=== PATIENT | male | born 1975 | race Two or more races ===

== ENCOUNTER 2016-10-10 05:50 | Inpatient (IN) | payer OTHER ==
--- NOTE | 2016-10-04 18:31 | Pre-op HX & Phy Repo 2 SIG ---
DATE OF ADMISSION: 10/10/2016 HISTORY: The patient is a 41-year-old preoperative male to female sexual reassignment surgery, in overall good health. MEDICATIONS: Medications taken in the past, estrogen and spironolactone. ALLERGIES TO MEDICATIONS: None. OPERATIONS: Laparoscopic cholecystectomy in 2010 and breast augmentation on 08/09/2016. REVIEW OF SYSTEMS: The patient states that she has three formed bowel movements daily ever since childhood and no gastrointestinal issues. She has no urinary symptoms. PHYSICAL EXAMINATION: GENERAL: The patient is of medium build, well developed and well nourished. ABDOMEN: Slightly obese, but soft. RECTAL: Reveals no prolapse and normal perianal skin. IMPRESSION: Gender dysphoria. PLAN: Sexual reassignment surgery, male to female. DISCUSSION: I have had a full discussion with the patient regarding my role in her surgery including the nature of the surgery to create the vaginal canal options and risks. I have discussed the risks of bleeding, infection, injury to adjacent structures or organs including urinary tract and rectum, which could lead to the need for additional procedures, intraoperative rigid sigmoidoscopy, abnormal evacuation of voiding, etc. All questions have been answered. She understands and agrees to proceed. Sim Esquivel M.D. DR: [place] JOB#: [id number] CC:
[~2016-10-10] VITALS: Ht 157.5 cm; Wt 92.1 kg
[2016-10-10] VITALS (14 sets, daily range): BP systolic 111–139; BP diastolic 42–83
[2016-10-10] MEDS ORDERED: NKM (06:22)
[2016-10-10] MEDS ORDERED: Surgicel 4in x 8in TOPIC ONE (06:36)
[2016-10-10] MEDS ORDERED: Bacitracin Oint 15gm Tube TOPIC ONE ×6 (06:37→13:53)
[2016-10-10] MEDS ORDERED: Lidocaine 1% 10mg/ml/Epi 0.005mg/ml 30ml vial INJ ONE (06:37)
[2016-10-10] MEDS ORDERED: Lidocaine 0.5% Epi 50 mL Vial ONE (06:37)
[2016-10-10] MEDS ORDERED: Bacitracin 50000 Units Vial ONE (06:37)
[2016-10-10] MEDS ORDERED: Bupivacaine w/Epi 0.5% 30ml Vial INJ ONE (07:13)
[2016-10-10] MEDS ORDERED: fentaNYL 100 mcg/2 mL IV ONE (07:30)
[2016-10-10] MEDS ORDERED: Metoprolol 5mg/5ml Inj ONE (07:30)
[2016-10-10] MEDS ORDERED: Midazolam 2mg/2ml Inj ONE (07:30)
[2016-10-10] MEDS ORDERED: LR 1000ml ONE (07:30)
[2016-10-10] MEDS ORDERED: Sterile Water Irrig 1000ml IRRIG ONE (07:30)
[2016-10-10] MEDS ORDERED: Propofol 10mg/ml 20ml IV ONE (07:30)
[2016-10-10] MEDS ORDERED: NS Irrig 1000ml ONE (07:30)
[2016-10-10] MEDS ORDERED: Zemuron 50mg/5ml Inj IV ONE (07:30)
--- NOTE | 2016-10-10 07:59 | Pre-Procedure Note/Attestation ---
Pre-Procedure Note/Attestation Complete Prior to Procedure Planned Procedure: not applicable Procedure Narrative: Male to female sexual reassignment Indications for Procedure Pre-Operative Diagnosis: Gender dysphoria Attestation I attest that I discussed the nature of the procedure; its benefits; risks and complications; and alternatives (and the risks and benefits of such alternatives ), prior to the procedure, with the patient (or the patient's legal eligibility services representative). I attest that, if there was a reasonable possibility of needing a blood transfusion, the patient (or the patient's legal eligibility services representative) was given the [facility] standardized written summary, pursuant to the [place] Blood Safety Act ([place] Health and Safety Code # 1645, as amended). I attest that I re-evaluated the patient just prior to the surgery and that there has been no change in the patient's H&P, except as documented below: ASHLEY HILL Oct 10, 2016 07:59
--- NOTE | 2016-10-10 08:11 | Anethesia Preoperative Eval ---
Anesthesia Pre-op PMH/ROS General Date of Evaluation: Oct 10, 2016 Time of Evaluation: 07:00 Anesthesiologist: Claudette ASA Score: ASA 1 Mallampati Score Class I : Soft palate, uvula, fauces, pillars visible Class II: Soft palate, uvula, fauces visible Class III: Soft palate, base of uvula visible Class IV: Only hard plate visible Mallampati Classification: Class I Surgeon: Alter Diagnosis: Gender dysphoria Surgical Procedure: Sexual reassignment male to female Family History: no anesthesia problems Allergies: Coded Allergies: No Known Allergies (Unverified , 10/07/16) Medications: see eMAR Past Medical History Cardiovascular: Denies: CAD, HTN, [place], arrhythmia, other, valve dz Pulmonary: Denies: COPD, JACK, asthma, other Gastrointestinal/Genitourinary: Denies: CRI, ESRD, GERD, other Neurologic/Psychiatric: Denies: CVA, TIA, dementia, depression/anxiety, other Endocrine: Denies: DM, hypothyroidism, other, steroids HEENT: Denies: [place] (L), [place] (R), cataract (L), cataract (R), glaucoma, other Hematology/Immune: Denies: DVT, anemia, bleeding disorder, other Musculoskeletal/Integumentary: Denies: DDD, DJD, OA, RA, edema, other PMH Narrative: Denies significant PMH PSxH Narrative: Cholecystectomy, breast augmentation Anesthesia Pre-op Phys. Exam Physician Exam Last Vital Signs Date Time Temp Pulse Resp B/P Pulse Ox O2 Delivery O2 Flow Rate FiO2 10/10/16 06:46 98.5 85 17 134/80 Room Air Constitutional: NAD Neurologic: CN 2-12 intact Cardiovascular: RRR, no M/R/G Respiratory: CTA Gastrointestinal: S/NT/ND Airway Exam Mallampati Score: Class I MO: full ROM: full Teeth: intact Anesthesia Pre-op A/P Labs Within normal limits Studies Pre-op Studies: EKG - NSR Risk Assessment & Plan Assessment: Healthy here for sexual reassignment Plan: GETA Status Change Before Surgery: No Pre-Antibiotics Drug: Ancef, Gent Given Within 1 Hr of Incision: Yes Time Given: 08:05 FREIDA HERNANDEZ M.D. Oct 10, 2016 08:11
--- NOTE | 2016-10-10 08:13 | Immediate Post-Op Evaluation ---
Immediate Post-Op Evalulation Immediate Post-Op Evalulation Procedure: Sexual reassignment male to female Date of Evaluation: Oct 10, 2016 Time of Evaluation: 15:40 IV Fluids: 3500 Estimated Blood Loss: 650 Urinary Output: 400 Blood Pressure Systolic: 112 Blood Pressure Diastolic: 75 Pulse Rate: 94 Respiratory Rate: 20 O2 Sat by Pulse Oximetry: 100 Temperature (Fahrenheit): 97.0 Pain Score (1-10): 0 Nausea: No Vomiting: No Complications No complication Patient Status: reacts, patent, extubated, none Hydration Status: adequate Drug: Ancef, Gent Given Within 1 Hr of Incision: Yes Time Given: 08:05 FREIDA HERNANDEZ M.D. Oct 10, 2016 08:13
[2016-10-10] MEDS ORDERED: metroNIDAZOLE 500mg 100 ML ONE ×2 (09:54→15:53)
[2016-10-10 13:47] LABS: BASOPHILS % (AUTO) 0.4 % (0.0-2.0); EOSINOPHILS % (AUTO) 0.5 % (0.0-3.0); LYMPHOCYTES % (AUTO) 15.4 % (20.0-45.0); MEAN CORPUSCULAR HEMOGLOBIN 30.2 PG (27.0-31.0); MEAN CORPUSCULAR HGB CONC 33.2 G/DL (32.0-36.0); MEAN CORPUSCULAR VOLUME 91 FL (80-99); MEAN PLATELET VOLUME 7.6 FL (6.5-10.1); MONOCYTES % (AUTO) 7.2 % (1.0-10.0); NEUTROPHILS % (AUTO) 76.5 % (45.0-75.0); PLATELET COUNT 303 K/UL (150-450); RED CELL DISTRIBUTION WIDTH 11.6 % (11.6-14.8); WHITE BLOOD COUNT 17.6 K/UL (4.8-10.8)
[2016-10-10] MEDS ORDERED: LR 1000ml 1,000 ML IVLG SCH (15:23)
[2016-10-10] MEDS ORDERED: Norco 5mg/325mg tab ORAL PRN (15:30)
[2016-10-10] MEDS ORDERED: Hydromorphone 0.5mg/0.5ml inj IVP PRN (15:30)
[2016-10-10] MEDS ORDERED: LORazepam Inj 2mg/ml 1ml IV PRN (15:30)
[2016-10-10] MEDS ORDERED: LR 1000ml 1,000 ML IV SCH (15:30)
[2016-10-10] MEDS ORDERED: Meperidine 25mg/0.5ml Inj (FOR RIGORS ONLY) IV PRN (15:30)
[2016-10-10] MEDS ORDERED: Acetaminophen 500mg (ES) tab ORAL PRN (15:30)
[2016-10-10] MEDS ORDERED: DiphenhydrAMINE 50mg/ml Inj IVP PRN ×2 (15:30→20:00)
[2016-10-10] MEDS ORDERED: PCA HYDROmorphone 1mg/ml 30 ML IV PRN (15:45)
[2016-10-10] MEDS ORDERED: Rate Change PCA 1 Each MISC PRN (15:45)
[2016-10-10] MEDS: PCA HYDROmorphone 1mg/ml 30 ML IV PRN (15:47)
--- NOTE | 2016-10-10 15:50 | Operative Note - PDOC ---
Operative Note Operative Note Date of Operation/Procedure: Oct 10, 2016 Pre-op Diagnosis: Gender dysphoria Procedure: Male to female sexual reassignment Post-op Diagnosis: same as pre-op Surgeon: Shelli Seals Anesthesia: general Specimen: yes Complications: none Condition: stable Estimated Blood Loss: volume - 65o Drains: AUTUMN Indications for Procedure Gender dysphoria ASHLEY SEALS Oct 10, 2016 15:50
[2016-10-10] MEDS: metroNIDAZOLE 500mg 100 ML IVPB SCH (15:59)
--- NOTE | 2016-10-10 16:00 | Operative Note - Dictated ---
DATE OF OPERATION: 10/10/2016 SURGEON: Sim Esquivel M.D. PREOPERATIVE DIAGNOSIS: Gender dysphoria. POSTOPERATIVE DIAGNOSIS: Gender dysphoria. OPERATION PERFORMED: Creation of vaginal canal for sexual reassignment surgery, male to female. PROCEDURE: I entered the operating room at the appropriate time after the initial phase of surgery had been performed by the primary surgeon, Dr. Baldemar Seals. I placed a rigid sigmoidoscope in the rectum and immediately there was liquid brown stool coming out around it. This was suctioned free. The suction deployed through the proctoscope. Proctoscope removed. The field irrigated with antibiotic solution followed by Betadine and the scope cleansed and reintroduced. I incised the central perineal tendon and using cautery for hemostasis as well as a 3-0 Vicryl figure of eight suture ligature, a space was created approximately 2-1/2 fingerbreadths in width and 11 cm in depth between the urinary tract above and the rectum below, then the field was filled with saline and the rectum insufflated and inspected visually, there was no evidence of rectal trauma or any extravasation. The rectum was suctioned free of the insufflated air and the sigmoidoscope removed. A Betadine-soaked vaginal pack was packed into the depths of the newly created space for the vaginal canal. The surgery was then continued by Dr. Seals. Sim Esquivel M.D. DR: ANGELA JOB#: [id number] CC:
[2016-10-10 16:47] LABS: MEAN CORPUSCULAR HEMOGLOBIN 30.9 PG (27.0-31.0); MEAN CORPUSCULAR HGB CONC 35.1 G/DL (32.0-36.0); MEAN CORPUSCULAR VOLUME 88 FL (80-99); MEAN PLATELET VOLUME 7.5 FL (6.5-10.1); PLATELET COUNT 295 K/UL (150-450); RED BLOOD COUNT 3.57 M/UL (4.20-5.40); RED CELL DISTRIBUTION WIDTH 11.7 % (11.6-14.8)
[2016-10-10 18:41] LABS: ANISOCYTOSIS 1+; BAND NEUTROPHILS % (MANUAL) 2 % (0-8); BASOPHILS % (MANUAL) 0 % (0-2); EOSINOPHILS % (MANUAL) 0 % (0-3); HYPOCHROMASIA 1+; LYMPHOCYTES % (MANUAL) 14 % (20-45); NEUTROPHILS % (MANUAL) 79 % (45-75); PLATELET ESTIMATE ADEQUATE; PLATELET MORPHOLOGY NORMAL; TOTAL CELLS COUNTED 100
[2016-10-10] MEDS: PCA shift volume MISC SCH (19:00)
[2016-10-10] MEDS ORDERED: Naloxone 0.4mg/ml Inj IVP PRN (20:00)
[2016-10-10] MEDS: D5 1/2NS w/KCl 20mEq 1,000 ML IV SCH (20:31)
[2016-10-10] MEDS: ceFAZolin sod 1 GM in D5W 55 ML IV SCH (20:31)
[2016-10-11] VITALS: BP 114/72
[2016-10-11] MEDS: metroNIDAZOLE 500mg 100 ML IVPB SCH (00:53)
[2016-10-11] MEDS: ceFAZolin sod 1 GM in D5W 55 ML IV SCH ×3 (02:01→17:59)
--- NOTE | 2016-10-11 02:45 | Operative Note - Dictated ---
DATE OF OPERATION: 10/10/2016 PREOPERATIVE DIAGNOSIS: Male to female gender dysphoria. POSTOPERATIVE DIAGNOSIS: Male to female gender dysphoria. PROCEDURE: Male to female sexual reassignment using penile inversion technique with scrotal skin graft vaginoplasty. SURGEON: Baldemar Seals M.D. ANESTHESIA: General. INDICATIONS: The patient is a 41-year-old, male to female transgender patient, who has been living as a female since the age of 17 and has been on hormones since 2011. The patient has the requirements for sexual reassignment. She has undergone previous scrotal electrolysis. OPERATION: The patient was taken to the operating room. She was given general anesthesia and placed in lithotomy position. She was prepped and draped in the usual manner. Scrotal skin was excised from the penoscrotal junction to the perineum leaving some lateral scrotal skin on each side. The scrotal skin was then set aside for scrotal skin graft. Both testicles were then dissected along the spermatic cord up to the external rings. The cord on each side was clamped, cut, and suture ligated with #0 silk sutures. Two suture ligations were placed on each spermatic cord with the testicles and cord then excised. Circumcision incision was made approximately 1 cm from the coronal sulcus dorsally. The patient was uncircumcised. The penis was then degloved and the penis was then transposed into the open scrotal wound. A blunt sharp dissection was then done at the crura on each side. A #0 Ethibond suture was then placed around the each of the crura and tied. Blunt sharp dissection was done over the pubic symphysis with some dissection of the subcutaneous tissue off the rectus fascia. The patient had pubic ptosis anyhow minimal dissection was necessary. In order to keep the pubic skin down more posteriorly, a suture of #1 Prolene was passed through the pubic skin to the rectus fashion out through the skin and tied over a [address] Esquivel then proceeded to make the vaginal space between the rectum and the bladder and urethra. He was able to get a depth of 11 cm. The scrotal skin was then desatted with all subcutaneous tissue removed from the scrotal skin. A 12 x 4 cm tissue occupational therapy assistant was available. The scrotal skin graft was then molded over the vaginal tissue occupational therapy assistant and sutured to shape it with 3-0 Vicryl sutures.. The inverted penile skin was then sutured to the skin graft over the vaginal stent to form a vaginal vault. The inverted penile skin was sutured to the skin graft with 3-0 Vicryl sutures. Extra skin graft was excised. Incision was made on each side of the urethra through the tunic albuginea. The tunica was opened first on the left side from the blair all the way to the distal corporal body. A similar incision was made on the right side. The spongy tissue was then dissected off of the tunic albuginea from the blair on each side all the way to the distal tunica. Cavernosal vessels were clamped, cut, and suture ligated. A neoclitoris was then made by marking a pentagonal shape neoclitoris at the 12 o'clock position of the glans. Some of the distal penile skin that had been left attached to the mathew was then elevated up to the base of the neoclitoris. An incision was then made around the neoclitoris on the glans portion to free it up from the rest of the glans. It was kept attached to the mathew. Using the tips of the Weaver scissors, the distal corpora was cut and the neoclitoris was freed up from the rest of the glans. The neoclitoris was thus attached to the tunic albuginea in the dorsal neurovascular structures. There was good bleeding from the neoclitoris. The penile skin that was attached at the base of the neoclitoris was then sutured on each side to the neoclitoris with running 5-0 Monocryl suture to create a clitoral mendez. The penile skin was then sutured to itself with a running 5-0 Monocryl to cover a part of the neoclitoris. The tunica was then folded on itself over the pubic symphysis and sutured in place with 2-0 Monocryl sutures. The bulbocavernosus muscle was then dissected off of the bulb of the urethra. There was not much spongiosum. The urethra was then cut in the mid bulbous urethra. Some spongiosum was then excised. The urethra was spatulated at the 6 o'clock position. The urethra was then sutured to the capsule of the spongiosum with a running 4-0 PDS suture. The neovagina was then inserted into the vaginal space. An inverted Y incision was made over the neoclitoris was then delivered through the inverted penile skin. It was sutured in place with running 5-0 Monocryl suture. A vertical incision was then made over the neourethra. The neourethra was then delivered through the inverted penile skin and sutured in place with a running locking 4-0 PDS suture. The suture was then placed lateral to the neoclitoris on each side of the inverted penile skin. The 2-0 Vicryl suture the skin to the endopelvic fascia and out through the skin again to create a labial sulcus on each side. The patient was rather overweight. Subcutaneous tissue in the vaginal area was excised. A marking was made to excise the skin on each side to form normal looking labia majora. Underlying subcutaneous tissue was also excised. Care was taken to make sure there was symmetry of the labia majora. The neovagina was then sutured to the posterior perineum with interrupted #3-0 Vicryl sutures. A #10-E[place]ian Saravanan-Arguelles was placed through a stab incision on the right and left perineum and brought along the right labia majora and left labia majora respectively into the pubic region. The labia majora were then closed with intradermal sutures of 4-0 Monocryl followed by subcuticular suture of 4-0 Monocryl. The mid vaginal vault was closed with interrupted 3-0 Monocryl sutures. The vaginal vault was then placed in position and the tissue occupational therapy assistant was placed to give it as deeper placement as possible. A 90 mL was placed into the tissue occupational therapy assistant. The neovagina was closed over the vaginal tissue occupational therapy assistant to create better compression. This was done with some interrupted 2-0 silk sutures. Bolsters were then placed on the right and left vulva in order to prevent the expulsion of the vaginal stent. At the conclusion of the case, the patient had excellent result. She tolerated the procedure well. Estimated blood loss was approximately 650 mL. Baldemar Seals M.D. DR: SUSAN JOB#: [id number] CC:
[2016-10-11] MEDS: D5 1/2NS w/KCl 20mEq 1,000 ML IV SCH ×3 (03:00→19:00)
[2016-10-11 04:00] VITALS: BP 108/52
--- NOTE | 2016-10-11 06:11 | 48 Hour Post Anesthesia Eval ---
Post Anesthesia Evaluation Procedure: Sexual reassignment male to female Date of Evaluation: Oct 11, 2016 Blood Pressure Systolic: 108 0: 52 Pulse Rate: 91 Respiratory Rate: 18 Temperature (Fahrenheit): 98.7 O2 Sat by Pulse Oximetry: 99 Airway: patent Nausea: No Vomiting: No Pain Intensity: 3 Hydration Status: adequate Cardiopulmonary Status: Stable Mental Status/LOC: patient returned to baseline Follow-up Care/Observations: As per surgery Post-Anesthesia Complications: No anesthetic complication Follow-up care needed: N/A FREIDA HERNANDEZ M.D. Oct 11, 2016 06:11
[2016-10-11] MEDS: PCA shift volume MISC SCH ×2 (07:17→19:26)
--- NOTE | 2016-10-11 07:27 | General Progress Note ---
Progress Note Progress Note Afebrile. VSS Stable. Wounds fine. Mild swelling. ASHLEY Recinos Oct 11, 2016 07:27
[2016-10-11 08:16] VITALS: BP 112/64
[2016-10-11 08:21] LABS: BASOPHILS % (AUTO) 0.4 % (0.0-2.0); EOSINOPHILS % (AUTO) 0.1 % (0.0-3.0); LYMPHOCYTES % (AUTO) 14.2 % (20.0-45.0); MEAN CORPUSCULAR HEMOGLOBIN 31.7 PG (27.0-31.0); MEAN CORPUSCULAR HGB CONC 34.4 G/DL (32.0-36.0); MEAN CORPUSCULAR VOLUME 92 FL (80-99); MEAN PLATELET VOLUME 7.8 FL (6.5-10.1); MONOCYTES % (AUTO) 10.1 % (1.0-10.0); NEUTROPHILS % (AUTO) 75.3 % (45.0-75.0); PLATELET COUNT 254 K/UL (150-450); RED BLOOD COUNT 3.07 M/UL (4.20-5.40); RED CELL DISTRIBUTION WIDTH 12.2 % (11.6-14.8)
[2016-10-11 11:51] VITALS: BP 110/66
[2016-10-11 15:40] VITALS: BP 111/62
[2016-10-11 17:03] LABS: BASOPHILS % (AUTO) 0.4 % (0.0-2.0); EOSINOPHILS % (AUTO) 0.3 % (0.0-3.0); LYMPHOCYTES % (AUTO) 15.5 % (20.0-45.0); MEAN CORPUSCULAR HEMOGLOBIN 31.3 PG (27.0-31.0); MEAN CORPUSCULAR HGB CONC 34.1 G/DL (32.0-36.0); MEAN CORPUSCULAR VOLUME 92 FL (80-99); MEAN PLATELET VOLUME 6.8 FL (6.5-10.1); MONOCYTES % (AUTO) 9.3 % (1.0-10.0); NEUTROPHILS % (AUTO) 74.5 % (45.0-75.0); PLATELET COUNT 246 K/UL (150-450); RED CELL DISTRIBUTION WIDTH 12.2 % (11.6-14.8); WHITE BLOOD COUNT 15.1 K/UL (4.8-10.8)
[2016-10-11] MEDS: PCA HYDROmorphone 1mg/ml 30 ML IV PRN (18:19)
[2016-10-11 20:38] VITALS: BP 114/61
[2016-10-12 00:14] VITALS: BP 120/62
[2016-10-12] MEDS: ceFAZolin sod 1 GM in D5W 55 ML IV SCH ×3 (02:06→18:15)
[2016-10-12] MEDS: D5 1/2NS w/KCl 20mEq 1,000 ML IV SCH (02:06)
[2016-10-12 04:00] VITALS: BP 110/61
[2016-10-12 06:31] LABS: BASOPHILS % (AUTO) 0.4 % (0.0-2.0); LYMPHOCYTES % (AUTO) 16.5 % (20.0-45.0); MEAN CORPUSCULAR HEMOGLOBIN 31.4 PG (27.0-31.0); MEAN CORPUSCULAR HGB CONC 34.3 G/DL (32.0-36.0); MEAN CORPUSCULAR VOLUME 92 FL (80-99); MEAN PLATELET VOLUME 7.2 FL (6.5-10.1); MONOCYTES % (AUTO) 10.3 % (1.0-10.0); NEUTROPHILS % (AUTO) 71.9 % (45.0-75.0); PLATELET COUNT 241 K/UL (150-450); RED BLOOD COUNT 2.69 M/UL (4.20-5.40); WHITE BLOOD COUNT 12.6 K/UL (4.8-10.8)
[2016-10-12] MEDS: PCA shift volume MISC SCH (07:23)
[2016-10-12 08:00] VITALS: BP 130/64
--- NOTE | 2016-10-12 09:19 | General Progress Note ---
Progress Note Progress Note AFebrile. VSS. Wounds stable. Hct 24. Will check later. ASHLEY HILL Oct 12, 2016 09:19
[2016-10-12 09:49] LABS: ANION GAP 7 (5-15); CALCIUM 7.8 mg/dL (8.6-10.2); CARBON DIOXIDE 25 mEQ/L (20-30); CHLORIDE 102 mEQ/L (98-107); CREATININE 0.8 mg/dL (0.5-0.9); GLOMERULAR FILTRATION RATE > 60 mL/min (>60); HEMOLYSIS 3; POTASSIUM 3.9 mEQ/L (3.4-4.9); SODIUM 134 mEQ/L (135-145)
[2016-10-12] MEDS: Enoxaparin 40mg Inj SUBQ SCH (10:09)
[2016-10-12 12:00] VITALS: BP 118/66
[2016-10-12 16:00] VITALS: BP 127/75
[2016-10-12 17:33] LABS: BASOPHILS % (AUTO) 0.6 % (0.0-2.0); EOSINOPHILS % (AUTO) 1.1 % (0.0-3.0); LYMPHOCYTES % (AUTO) 17.1 % (20.0-45.0); MEAN CORPUSCULAR HEMOGLOBIN 31.2 PG (27.0-31.0); MEAN CORPUSCULAR HGB CONC 34.8 G/DL (32.0-36.0); MEAN CORPUSCULAR VOLUME 90 FL (80-99); MEAN PLATELET VOLUME 6.9 FL (6.5-10.1); MONOCYTES % (AUTO) 10.2 % (1.0-10.0); PLATELET COUNT 268 K/UL (150-450); RED BLOOD COUNT 2.85 M/UL (4.20-5.40); RED CELL DISTRIBUTION WIDTH 11.9 % (11.6-14.8); WHITE BLOOD COUNT 13.1 K/UL (4.8-10.8)
[2016-10-12 17:45] LABS: ANION GAP 8 (5-15); CARBON DIOXIDE 27 mEQ/L (20-30); CHLORIDE 99 mEQ/L (98-107); CREATININE 0.8 mg/dL (0.5-0.9); GLOMERULAR FILTRATION RATE > 60 mL/min (>60); HEMOLYSIS 1; POTASSIUM 3.6 mEQ/L (3.4-4.9); SODIUM 134 mEQ/L (135-145)
[2016-10-12 20:00] VITALS: BP 126/69
[2016-10-12] MEDS ORDERED: Rate Change PCA 1 Each MISC PRN (21:00)
[2016-10-12] MEDS ORDERED: Naloxone 0.4mg/ml Inj IVP PRN (21:00)
[2016-10-13] VITALS: BP 110/68
[2016-10-13] MEDS: ceFAZolin sod 1 GM in D5W 55 ML IV SCH ×3 (02:19→18:01)
[2016-10-13] MEDS: PCA HYDROmorphone 1mg/ml 30 ML IV PRN (02:38)
[2016-10-13 04:00] VITALS: BP 124/67
[2016-10-13 06:21] LABS: BASOPHILS % (AUTO) 0.9 % (0.0-2.0); EOSINOPHILS % (AUTO) 2.8 % (0.0-3.0); LYMPHOCYTES % (AUTO) 24.5 % (20.0-45.0); MEAN CORPUSCULAR HEMOGLOBIN 30.9 PG (27.0-31.0); MEAN CORPUSCULAR HGB CONC 33.7 G/DL (32.0-36.0); MEAN CORPUSCULAR VOLUME 92 FL (80-99); MEAN PLATELET VOLUME 7.6 FL (6.5-10.1); MONOCYTES % (AUTO) 10.5 % (1.0-10.0); NEUTROPHILS % (AUTO) 61.2 % (45.0-75.0); PLATELET COUNT 276 K/UL (150-450); RED CELL DISTRIBUTION WIDTH 11.9 % (11.6-14.8)
[2016-10-13] MEDS: PCA shift volume MISC SCH ×2 (07:00→19:14)
--- NOTE | 2016-10-13 07:50 | General Progress Note ---
Progress Note Progress Note Afebrile. VSS Wounds fine. AUTUMN down. ASHLEY HILL Oct 13, 2016 07:50
[2016-10-13 08:00] VITALS: BP 117/60
[2016-10-13] MEDS: Enoxaparin 40mg Inj SUBQ SCH (10:11)
[2016-10-13 12:00] VITALS: BP 126/66
[2016-10-13 16:00] VITALS: BP 119/75
[2016-10-13 20:00] VITALS: BP 120/71
[2016-10-14] MEDS: ceFAZolin sod 1 GM in D5W 55 ML IV SCH ×3 (01:36→17:22)
[2016-10-14] MEDS: PCA HYDROmorphone 1mg/ml 30 ML IV PRN (02:39)
[2016-10-14 04:00] VITALS: BP 111/76
--- NOTE | 2016-10-14 07:06 | General Progress Note ---
Progress Note Progress Note Afebrile, VSS Hct stable 25. Wounds fine. Doing well. ASHLEY HILL Oct 14, 2016 07:06
[2016-10-14] MEDS: PCA shift volume MISC SCH ×2 (07:09→19:28)
[2016-10-14 08:00] VITALS: BP 124/87
[2016-10-14 08:42] LABS: BASOPHILS % (AUTO) 0.9 % (0.0-2.0); EOSINOPHILS % (AUTO) 4.2 % (0.0-3.0); LYMPHOCYTES % (AUTO) 20.4 % (20.0-45.0); MEAN CORPUSCULAR HEMOGLOBIN 31.4 PG (27.0-31.0); MEAN CORPUSCULAR HGB CONC 34.7 G/DL (32.0-36.0); MEAN CORPUSCULAR VOLUME 90 FL (80-99); MEAN PLATELET VOLUME 6.8 FL (6.5-10.1); MONOCYTES % (AUTO) 9.8 % (1.0-10.0); NEUTROPHILS % (AUTO) 64.7 % (45.0-75.0); PLATELET COUNT 337 K/UL (150-450); RED BLOOD COUNT 2.82 M/UL (4.20-5.40); RED CELL DISTRIBUTION WIDTH 11.5 % (11.6-14.8); WHITE BLOOD COUNT 7.7 K/UL (4.8-10.8)
[2016-10-14] MEDS: Enoxaparin 40mg Inj SUBQ SCH (09:09)
[2016-10-14 12:00] VITALS: BP 124/67
[2016-10-14 16:00] VITALS: BP 120/71
[2016-10-14 20:00] VITALS: BP 127/74
[2016-10-14] MEDS ORDERED: Norco 5mg/325mg tab ORAL PRN (21:00)
[2016-10-15] VITALS: BP 113/61
[2016-10-15] MEDS ORDERED: Rate Change PCA 1 Each MISC PRN (02:00)
[2016-10-15] MEDS ORDERED: Naloxone 0.4mg/ml Inj IVP PRN (02:00)
[2016-10-15] MEDS: ceFAZolin sod 1 GM in D5W 55 ML IV SCH ×3 (02:40→18:30)
[2016-10-15] MEDS: PCA HYDROmorphone 1mg/ml 30 ML IV PRN (03:04)
[2016-10-15 04:00] VITALS: BP 105/52
[2016-10-15] MEDS: PCA shift volume MISC SCH ×2 (07:00→19:22)
[2016-10-15 08:00] VITALS: BP 111/42
--- NOTE | 2016-10-15 08:14 | General Progress Note ---
Progress Note Progress Note Afebrile. VSS/ Doing well. Hct 25. ASHLEY HILL Oct 15, 2016 08:14
[2016-10-15] MEDS: Enoxaparin 40mg Inj SUBQ SCH (09:10)
[2016-10-15] MEDS ORDERED: Tubing IV Secondary IV ONE (10:44)
[2016-10-15 11:48] VITALS: BP 114/62
[2016-10-15 19:02] VITALS: BP 113/62
[2016-10-15 20:00] VITALS: BP 118/63
[2016-10-16] VITALS: BP 114/71
[2016-10-16] MEDS: ceFAZolin sod 1 GM in D5W 55 ML IV SCH ×2 (02:30→09:01)
[2016-10-16] MEDS: PCA HYDROmorphone 1mg/ml 30 ML IV PRN (02:35)
[2016-10-16 04:00] VITALS: BP 125/76
[2016-10-16] MEDS: PCA shift volume MISC SCH (07:00)
[2016-10-16 07:32] VITALS: BP 109/66
--- NOTE | 2016-10-16 07:34 | General Progress Note ---
Progress Note Progress Note Afebrile. VSS. Stent, [place], drains out. Wounds fine. Discharge. ASHLEY HILL Oct 16, 2016 07:34
[2016-10-16] MEDS: Enoxaparin 40mg Inj SUBQ SCH (09:01)
[2016-10-16 11:53] VITALS: BP 133/80
[2016-10-16] MEDS ORDERED: CEPHALEXIN500 MG ORAL (11:57)
[2016-10-16] MEDS ORDERED: PERCOCET 5-3251 EACH ORAL (11:58)
--- NOTE | 2016-10-18 13:25 | Discharge Summary ---
Discharge Summary Hospital Course Date of Admission Oct 10, 2016 at 05:50 Date of Discharge Oct 16, 2016 at 13:58 Admitting Diagnosis Gender dysphoria Reason for Hospitalization: elective sexual reassignment surgery SARA Pierce is a 41 year old female who was admitted on Oct 10, 2016 at 05 :50 for Gender Dysphoroa Procedures s/p 10/[address] Seals Male to female sexual reassignment using penile inversion technique with scrotal skin graft vaginoplasty. s/p 10/[address] Esquivel Creation of vaginal canal for sexual reassignment surgery, male to female. Hospital Course s/p surgery course of recovery uneventful initially with leukocytosis after surgery IV hydration on empiric abx leucocytosis resolved, afebrile HH remain stable, at baseline, no need for transfusion wound healing well F/c, stent and drains dc voided freely pain addressed, managed and controlled tolerated diet ambulated stable for discharge outpatient fup with surgeon scripts provided FINAL DIAGNOSIS Gender dysphoria s/p male to female sexual reassignment Discharge Medications Continued Medications: Cephalexin* (Keflex*) 500 Mg Capsule 500 MG ORAL BID, #12 CAP 0 Refills Oxycodone/Acetaminophen 5-325* (Percocet 5-325 Mg Tablet*) 1 Each Tablet 1 TAB ORAL Q4H PRN for For Pain, #20 TAB Discharge Condition Upon Discharge: stable Discharge Disposition Patient was discharged to Home () Discharge Diagnoses: Discharge Instructions Discharge Instructions Special Instructions I have been assigned to complete a D/C Summary on this account. I was not involved in the patient management Estela Workman NP ([place]) Oct 18, 2016 13:25
== END 2016-10-16 13:58 | disposition home or self-care (01) | DRG 876 ==
LOC: EDSEX 05:50 → SDSOVERFLO 05:50 → 3E 17:48
PROC: 0W4M0Z0 (ICD-10-PCS; principal; 2016-10-10 07:00)
DX: F64.8 Other gender identity disorders (principal)
CPT/HCPCS: 36415; 80048; 85007; 85025; 86850; 86900; 86901; 86920; 87081; 94003; 94150; J1580; J2250; J2405